=== PATIENT | female | born 1990 | race Caucasian/White ===

== ENCOUNTER 2017-12-25 13:33 | Emergency (ER) | payer SELFPAY ==
[~2017-12-25] VITALS: Ht 160 cm; Wt 47.5 kg
[2017-12-25 13:37] VITALS: BP 121/74; PULSE 91; RESP 18; TEMP 98; O2SAT 100
[2017-12-25] MEDS ORDERED: IBUPROFEN 600 MG TAB PO ONE (14:15)
--- NOTE | 2017-12-25 14:29 | RADRPT ---
EXAM DATE/TIME: 12/25/2017 14:12 [place] COMPARISON: No previous studies available for comparison. INDICATIONS : Pain in left foot post fall yesterday. MEDICAL HISTORY : None. SURGICAL HISTORY : None. ENCOUNTER: Initial ACUITY: 1 day PAIN SCORE: 9/10 LOCATION: Left Foot. FINDINGS: Three view examination of the left foot demonstrates nondisplaced transverse fractures involving the base of the third and fourth metatarsal bones. The tarsal bones appear intact. The interphalangeal and metatarsophalangeal joints are intact. The calcaneus is intact. Bony mineralization is normal. CONCLUSION: Nondisplaced fractures of the third and fourth metatarsal bases. Gurdeep Guido MD on December 25, 2017 at 14:25 Board Certified Radiologist. This report was verified electronically.
--- NOTE | 2017-12-25 14:39 | PD ---
HPI Chief Complaint: Injury Time Seen by Provider: 13:57 Travel History International Travel<30 days: No Contact w/Intl Traveler<30days: No Traveled to known affect area: No History of Present Illness HPI 27-year-old female brought to the emergency department via police to the triage area with reports of suicidal ideation with plan to take an overdose of her pills. Patient states she wanted to go to [facility] but was brought here due to her suicidal nature. Police did not Still act her however. Patient states history of seizure disorder for which she takes Dilantin and Keppra which she has been out of her for 3 weeks. Patient states she does drink alcohol but denies IV drug use currently. She denies any other acute medical problems at this time. Patient is cooperative at this time. She is allergic to penicillin. [facility] Past Medical History Medical History: Denies Significant Hx ?: Not LMP: NOVEMBER 2017 Past Surgical History Surgical History: No Previous Surgery Social History Alcohol Use: No Tobacco Use: No Substance Use: No Allergies-Medications (Allergen,Severity, Reaction): Coded Allergies: Penicillins (Verified Allergy, Unknown, 12/25/17) Reported Meds & Prescriptions Reported Meds & Active Scripts Active No Active Prescriptions or Reported Medications Review of Systems Except as stated in HPI: all other systems reviewed are Neg General / Constitutional: No: Fever, Chills Eyes: No: Visual changes HENT: No: Headaches Cardiovascular: No: Chest Pain or Discomfort Respiratory: No: Shortness of Breath Gastrointestinal: No: Abdominal Pain Genitourinary: No: Dysuria Musculoskeletal: No: Pain Skin: No Rash Neurologic: Positive: Seizures (History), No: Weakness Psychiatric: Positive: Depression, Suicidal Ideations, Substance Abuse, No: Homicidal Ideation Endocrine: No: Polydipsia Hematologic/Lymphatic: No: Easy Bruising Physical Exam Narrative GENERAL: Patient appears in moderate distress SKIN: Warm and dry. Normal color. Normal turgor. There is ecchymosis to the dorsal surface of the left foot. No open wounds or abrasions. HEAD: Atraumatic. Normocephalic. EYES: Pupils equal and round. No scleral icterus. No injection or drainage. ENT: No nasal bleeding or discharge. Mucous membranes pink and moist. Pharynx is clear. Airways patent NECK: Trachea midline. Supple and nontender CARDIOVASCULAR: Regular rate and rhythm. RESPIRATORY: No accessory muscle use. Clear to auscultation. Breath sounds equal bilaterally. GASTROINTESTINAL: Abdomen soft, non-tender, nondistended. Hepatic and splenic margins not palpable. MUSCULOSKELETAL: Extremities without clubbing, cyanosis, or edema. No obvious deformities. Patient has swelling and tenderness across the dorsal surface of the left foot. Ankle is normal. Patient has normal neurovascular exam of the toes of the left foot, however movement causes extreme pain. No other injuries noted. NEUROLOGICAL: Awake and alert. No obvious cranial nerve deficits. Motor grossly within normal limits. Five out of 5 muscle strength in the arms and legs. Normal speech. PSYCHIATRIC: Appropriate mood and affect; insight and judgment normal. Data Data Last Documented VS Vital Signs Date Time Temp Pulse Resp B/P (MAP) Pulse Ox O2 Delivery O2 Flow Rate FiO2 12/25/17 13:37 98.0 91 18 121/74 (90) 100 Orders Orders Foot, Complete (Agw0uup) (12/25/17 13:58) Ice/Cold Pack (12/25/17 13:58) Ibuprofen (Motrin) (12/25/17 14:15) Splinting (12/25/17 ) Crutches (12/25/17 ) MDM Medical Decision Making Medical Screen Exam Complete: Yes Emergency Medical Condition: Yes Differential Diagnosis Trip and fall. Left foot sprain. Possible fracture. Narrative Course Ice is applied to the affected area. X-rays of the left foot are obtained and show: FINDINGS: Three view examination of the left foot demonstrates nondisplaced transverse fractures involving the base of the third and fourth metatarsal bones. The tarsal bones appear intact. The interphalangeal and metatarsophalangeal joints are intact. The calcaneus is intact. Bony mineralization is normal. Patient is placed in a Ortho boot and crutches. Patient should elevate this as much as possible and use ice as discussed. Patient is given tramadol 50 mg every 6 hours as needed pain #20. Patient should follow with Dr. Osman, the cellophane press operator on-call in the next 7-10 days. Work note is given with restrictions per Diagnosis Primary Impression: Fracture of metatarsal of left foot, closed Qualified Codes: S92.302A - Fracture of unspecified metatarsal bone(s), left foot, initial encounter for closed fracture Referrals: Jonas Osman DPDigna call for appointment Patient Instructions: Crutch Instructions (ED), Foot Fracture in Adults (ED), General Instructions Departure Forms: Work Release Enter return to work date: Dec 28, 2017 Special Instructions: Limited standing and walking secondary to left foot fracture until cleared by cellophane press operator. Patient is to use splint and crutches until that time. Additional Instructions: X-rays of the left foot are obtained and show: FINDINGS: Three view examination of the left foot demonstrates nondisplaced transverse fractures involving the base of the third and fourth metatarsal bones. The tarsal bones appear intact. The interphalangeal and metatarsophalangeal joints are intact. The calcaneus is intact. Bony mineralization is normal. Patient is placed in a Ortho boot and crutches. Patient should elevate this as much as possible and use ice as discussed. Patient is given tramadol 50 mg every 6 hours as needed pain #20. Patient should follow with Dr. Osman, the cellophane press operator on-call in the next 7-10 days. Work note is given with restrictions per Med/Other Pt SpecificInfo: Prescription(s) given Scripts No Active Prescriptions or Reported Meds Disposition: 01 DISCHARGE HOME Condition: Stable Mikey Epstein Dec 25, 2017 14:39
[2017-12-25] MEDS ORDERED: TRAM50TA PO (14:57)
== END 2017-12-25 15:17 | disposition home or self-care (01) ==
LOC: NEPD 13:33
DX: S92.335A Nondisplaced fracture of third metatarsal bone, left foot, initial encounter for closed fracture (principal); S92.345A Nondisplaced fracture of fourth metatarsal bone, left foot, initial encounter for closed fracture; X58.XXXA Exposure to other specified factors, initial encounter
CPT/HCPCS: 73630; 99283; E0113; L2114